=== PATIENT | female | born 1965 ===

== ENCOUNTER 2021-06-17 07:34 | Emergency (ER) | payer SELFPAY ==
--- NOTE | 2021-06-17 09:06 | Emergency Department Report ---
- General Chief complaint: Skin/Abscess/Foreign Body Stated complaint: BOIL/BACK Time Seen by Provider: 06/17/21 08:06 Source: patient Mode of arrival: Ambulatory Limitations: No Limitations - History of Present Illness Initial comments: The patient was evaluated in the emergency department for symptoms described in the history of present illness. He/she was evaluated in the context of the global COVID-19 pandemic, which necessitated consideration that the patient might be at risk for infection with the virus that causes COVID-19. Institutional protocols and algorithms that pertain to the evaluation of patients at risk for COVID-19 are in a state of rapid change based on information released by regulatory bodies including the CDC and federal and state organizations. These policies and algorithms were followed during the patient's care in the emergency department. Please note that these policies, procedures and recommendations changed on a rapid basis. 56-year-old -English female presents to the emergency room for a boil on her right buttocks for 2 weeks. Patient states that is gotten worse and pain is 10 out of 10. She does admit that he has started to drain crusting purulent discharge. She denies any fever chills no nausea no vomiting. She is unaware if anything has bitten her. She is up-to-date on her tetanus. MD complaint: abscess/boil Onset/Timin -: week(s) Location: buttocks (rt cheek) Severity: severe Severity scale (0 -10): 10 Quality: burning, stabbing, sharp Consistency: constant Improves with: none Worsens with: palpation, movement Associated symptoms: denies other symptoms Treatments Prior to Arrival: none - Related Data Previous Rx's Medication Instructions Recorded Last Taken Type Acetaminophen/Codeine [Tylenol 1 tab PO Q6H PRN #12 tab 06/17/21 Unknown Rx /Codeine # 3 tab] Doxycycline Hyclate [Doxycycline 100 mg PO Q12HR 7 Days #14 tab 06/17/21 Unknown Rx Hyclate TAB] Ibuprofen [Motrin 600 MG tab] 600 mg PO Q8H PRN #15 tablet 06/17/21 Unknown Rx Sulfamethoxazole/Trimethoprim 1 each PO BID 7 Days #14 tablet 06/17/21 Unknown Rx [Bactrim DS TAB] Allergies Allergy/AdvReac Type Severity Reaction Status Date / Time No Known Allergies Allergy Unverified 06/17/21 09:04 Abscess Boil HPI - HPI Chief Complaint: Skin/Abscess/Foreign Body Stated Complaint: BOIL/BACK Time Seen by Provider: 06/17/21 08:06 Home Medications: Previous Rx's Medication Instructions Recorded Last Taken Type Acetaminophen/Codeine [Tylenol 1 tab PO Q6H PRN #12 tab 06/17/21 Unknown Rx /Codeine # 3 tab] Doxycycline Hyclate [Doxycycline 100 mg PO Q12HR 7 Days #14 tab 06/17/21 Unknown Rx Hyclate TAB] Ibuprofen [Motrin 600 MG tab] 600 mg PO Q8H PRN #15 tablet 06/17/21 Unknown Rx Sulfamethoxazole/Trimethoprim 1 each PO BID 7 Days #14 tablet 06/17/21 Unknown Rx [Bactrim DS TAB] Allergies/Adverse Reactions: Allergies Allergy/AdvReac Type Severity Reaction Status Date / Time No Known Allergies Allergy Unverified 06/17/21 09:04 ED Review of Systems ROS: Stated complaint: BOIL/BACK Other details as noted in HPI Comment: All other systems reviewed and negative ED Past Medical Hx - Social History Smoking Status: Current Every Day Smoker Substance Use Type: Marijuana - Medications Home Medications: Home Medications Medication Instructions Recorded Confirmed Last Taken Type Acetaminophen/Codeine [Tylenol 1 tab PO Q6H PRN #12 tab 06/17/21 Unknown Rx /Codeine # 3 tab] Doxycycline Hyclate [Doxycycline 100 mg PO Q12HR 7 Days #14 tab 06/17/21 Unknown Rx Hyclate TAB] Ibuprofen [Motrin 600 MG tab] 600 mg PO Q8H PRN #15 tablet 06/17/21 Unknown Rx Sulfamethoxazole/Trimethoprim 1 each PO BID 7 Days #14 tablet 06/17/21 Unknown Rx [Bactrim DS TAB] ED Physical Exam - General Limitations: No Limitations General appearance: alert, in no apparent distress - Head Head exam: Present: atraumatic, normocephalic - Eye Eye exam: Present: normal appearance - ENT ENT exam: Present: mucous membranes moist - Neck Neck exam: Present: normal inspection - Respiratory Respiratory exam: Present: normal lung sounds bilaterally. Absent: respiratory distress - Cardiovascular Cardiovascular Exam: Present: regular rate, normal rhythm. Absent: systolic murmur, diastolic murmur, rubs, gallop - GI/Abdominal GI/Abdominal exam: Present: soft, normal bowel sounds - Extremities Exam Extremities exam: Present: normal inspection - Back Exam Back exam: Present: normal inspection - Neurological Exam Neurological exam: Present: alert, oriented X3 - Psychiatric Psychiatric exam: Present: normal affect, normal mood - Skin Skin exam: Present: warm, dry, intact, normal color, erythema. Absent: rash - Expanded Skin Exam Expanded Distribution of rash: genitals Description of rash: Present: tenderness (Buttocks), erythematous, swelling, macular, crusting, discharge ED Medical Decision Making - Medical Decision Making 56-year-old -English female presents to the emergency room for a boil on her right buttocks for 2 weeks. Patient states that is gotten worse and pain is 10 out of 10. She does admit that he has started to drain crusting purulent discharge. She denies any fever chills no nausea no vomiting. She is unaware if anything has bitten her. She is up-to-date on her tetanus. Critical care attestation.: If time is entered above; I have spent that time in minutes in the direct care of this critically ill patient, excluding procedure time. ED Disposition Clinical Impression: Cellulitis of buttock, right Disposition: 01 HOME / SELF CARE / HOMELESS Is pt being admited?: No Does the pt Need Aspirin: No Condition: Stable Instructions: Cellulitis, Adult, [id number] Additional Instructions: Complete antibiotics as prescribed pain medication as needed do not operate heavy machinery while taking Tylenol 3. Be sure to increase your fluid intake advance your diet as tolerated and follow-up with a primary care provider. Prescriptions: Sulfamethoxazole/Trimethoprim [Bactrim DS TAB] 1 each PO BID 7 Days #14 tablet Doxycycline Hyclate [Doxycycline Hyclate TAB] 100 mg PO Q12HR 7 Days #14 tab Ibuprofen [Motrin 600 MG tab] 600 mg PO Q8H PRN #15 tablet PRN Reason: Pain Acetaminophen/Codeine [Tylenol /Codeine # 3 tab] 1 tab PO Q6H PRN #12 tab PRN Reason: Pain , Severe (7-10) Referrals: PRIMARY CARE, [Primary Care Provider] - 3-5 Days HARVEY BUSCH MD [Staff Physician] - 3-5 Days Forms: Work/School Release Form(ED) Time of Disposition: 09:07
== END 2021-06-17 09:51 | disposition home or self-care (01) ==
LOC: ED 07:34
DX: L03.317 Cellulitis of buttock (principal); F17.200 Nicotine dependence, unspecified, uncomplicated
CPT/HCPCS: 99281

== ENCOUNTER 2022-03-13 12:28 | Emergency (ER) | payer SELFPAY ==
[2022-03-13 13:26] VITALS: BP 114/69
--- NOTE | 2022-03-13 13:28 | Emergency Department Report ---
ED Upper Extremity Inj HPI - General Stated Complaint: RT INDEX FINGER Source: patient Mode of arrival: Ambulatory - History of Present Illness Initial Comments: 56-year-old female presenting with pain in her right index finger. Patient reports about 2 weeks ago she was "gripping something tightly and it was since she has been having pain in that finger". Pain is worse at night, worse with movement. Has not taken any medications to help, no prior history of arthritis or joint problem. No numbness tingling or paresthesias of the extremity. Otherwise all other review systems is negative. MD Complaint: Injury to:: finger -: Gradual, week(s) (2) Other Extremity Injury: Fingers: Right Other Injuries: none Improves With: none Worsens With: movement of extremity Associated Symptoms: denies other symptoms. denies: weakness, numbness, nausea/vomiting - Related Data Previous Rx's Medication Instructions Recorded Last Taken Type Acetaminophen/Codeine [Tylenol 1 tab PO Q6H PRN #12 tab 06/17/21 Unknown Rx /Codeine # 3 tab] Doxycycline Hyclate [Doxycycline 100 mg PO Q12HR 7 Days #14 tab 06/17/21 Unknown Rx Hyclate TAB] Sulfamethoxazole/Trimethoprim 1 each PO BID 7 Days #14 tablet 06/17/21 Unknown Rx [Bactrim DS TAB] Ibuprofen [Motrin 600 MG tab] 600 mg PO Q8H PRN #15 tablet 03/13/22 Unknown Rx Allergies Allergy/AdvReac Type Severity Reaction Status Date / Time No Known Allergies Allergy Unverified 06/17/21 09:04 ED Review of Systems ROS: Stated complaint: RT INDEX FINGER Other details as noted in HPI Comment: All other systems reviewed and negative Constitutional: no symptoms reported Respiratory: denies: cough, orthopnea, SOB with exertion Cardiovascular: as per HPI Endocrine: denies: excessive sweating, intolerance to cold Musculoskeletal: arthralgia. denies: joint swelling, myalgia Skin: denies: lesions Neurological: as per HPI. denies: headache Psychiatric: denies: anxiety, depression ED Past Medical Hx - Past Medical History Previous Medical History?: No - Social History Smoking Status: Current Every Day Smoker Substance Use Type: Marijuana - Medications Home Medications: Home Medications Medication Instructions Recorded Confirmed Last Taken Type Acetaminophen/Codeine [Tylenol 1 tab PO Q6H PRN #12 tab 06/17/21 Unknown Rx /Codeine # 3 tab] Doxycycline Hyclate [Doxycycline 100 mg PO Q12HR 7 Days #14 tab 06/17/21 Unknown Rx Hyclate TAB] Sulfamethoxazole/Trimethoprim 1 each PO BID 7 Days #14 tablet 06/17/21 Unknown Rx [Bactrim DS TAB] Ibuprofen [Motrin 600 MG tab] 600 mg PO Q8H PRN #15 tablet 03/13/22 Unknown Rx ED Physical Exam - General Limitations: No Limitations General appearance: alert, in no apparent distress - Eye Eye exam: Present: normal appearance. Absent: PERRL - ENT ENT exam: Present: normal exam, normal orophraynx - Neck Neck exam: Present: normal inspection. Absent: tenderness - Respiratory Respiratory exam: Present: normal lung sounds bilaterally. Absent: respiratory distress, wheezes - Cardiovascular Cardiovascular Exam: Present: regular rate, normal rhythm - GI/Abdominal GI/Abdominal exam: Present: soft. Absent: tenderness - Rectal Rectal exam: Absent: deferred - Back Exam Back exam: Present: normal inspection, full ROM. 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 Will treat for arthralgia symptoms, followed up outpatient. Discussed all of this with patient with understanding Critical care attestation.: If time is entered above; I have spent that time in minutes in the direct care of this critically ill patient, excluding procedure time. ED Disposition Clinical Impression: Joint pain in fingers of right hand Disposition: HOME / SELF CARE / HOMELESS Is pt being admited?: No Does the pt Need Aspirin: No Condition: Stable Instructions: Joint Pain, [id number] Prescriptions: Ibuprofen [Motrin 600 MG tab] 600 mg PO Q8H PRN #15 tablet PRN Reason: Pain Referrals: ANAIS SALGUERO MD [Staff Physician] - 3-5 Days
== END 2022-03-13 14:22 | disposition home or self-care (01) ==
LOC: ED 12:28
DX: M79.644 Pain in right finger(s) (principal); F17.200 Nicotine dependence, unspecified, uncomplicated; F12.90 Cannabis use, unspecified, uncomplicated
CPT/HCPCS: 99282